=== PATIENT | female | born 1940 ===

== ENCOUNTER → 2018-05-16 | Outpatient (CLI) | payer MEDICARE, BC ==
[~2018-05-16] MED LIST: ALBU8.5H IH; ASPI81TA94 PO; BLAC160C3 PO; CELE-1 PO; DICL100G39; FLUT1DIS28 IH; NAPR220C12 PO; PANT40TA65 PO; PRAV20TA65 PO; SOLI10TA8 PO
== END ==
LOC: LAB 16:14
PROVIDERS: ATTEND Otolaryngology
DX: E04.2 Nontoxic multinodular goiter (principal)
CPT/HCPCS: 36415; 84439; 84443